=== PATIENT | female | born 1940 | race Caucasian/White ===

== ENCOUNTER 2021-06-29 09:14 | Inpatient (IN) | payer MEDICARE ==
[~2021-06-29] VITALS: Ht 160 cm; Wt 61.3 kg
[2021-06-29 09:23] VITALS: BP 171/90
[2021-06-29 09:52] LABS: BASO # 0.1 10*3/uL (0.0-0.1); BASO % 0.4 % (0.0-1.0); EOS % 0.1 % (1.0-4.0); HEMATOCRIT 47.1 % (37.0-47.0); LYMPH # 1.9 10*3/uL (1.3-4.4); LYMPH % 13.2 % (27.0-41.0); MEAN CELL VOLUME 91.5 fl (81.0-99.0); MEAN CORPUSCULAR HGB 29.9 pg (27.0-31.0); MEAN CORPUSCULAR HGB CONC 32.7 g/dl (33.0-37.0); MEAN PLATELET VOLUME 11.2 fl (9.6-12.3); MONO # 1.5 10*3/uL (0.1-1.0); MONO % 10.3 % (3.0-9.0); NEUT # 10.8 10*3/uL (2.3-7.9); NEUT % 75.5 % (47.0-73.0); PLATELET COUNT AUTOMATED 232 10*3/uL (130-400); RED BLOOD COUNT 5.15 10*6/uL (4.10-5.10); RED CELL DISTRI WIDTH 13.4 % (0-14.5); WHITE BLOOD COUNT 14.3 10*3/uL (4.8-10.8)
[2021-06-29 10:04] LABS: ACT PARTIAL THROMBO TIME 27.8 SECONDS (20.0-32.1)
[2021-06-29 10:12] LABS: ALBUMIN 3.8 gm/dl (3.1-4.5); ALKALINE PHOSPHATASE 88 U/L (45-117); BUN 11 mg/dl (7-24); CHLORIDE 109 mmol/L (98-107); CREATININE 0.87 mg/dL (0.55-1.02); POTASSIUM 3.5 mmol/L (3.5-5.1); SGOT/AST 21 IU/L (3-35); SGPT/ALT 31 U/L (12-78); SODIUM 141 mmol/L (136-145); TOTAL PROTEIN 7.4 gm/dL (6.4-8.2)
[2021-06-29 10:23] LABS: BILIRUBIN Negative (Negative); BLOOD Negative (Negative); CLARITY Clear (Clear); COLOR Yellow (Yellow); GLUCOSE Negative (Negative); KETONE Negative (Negative); LEUKO ESTERASE Negative (Negative); NITRITE Negative (Negative); PH 6.5 (4.5-8.0); UROBILINOGEN 0.2 E.U./dl (0.0-1.0)
[2021-06-29 10:25] LABS: TROPONIN I 0.397 ng/ml (<0.045)
[2021-06-29 10:33] LABS: BACTERIA TRACE; EPITHELIAL CELLS 0-2
[2021-06-29 11:48] LABS: LDH 186 U/L (84-246)
[2021-06-29 13:11] VITALS: BP 169/77
[2021-06-29] MEDS ORDERED: NORVASC10 MG PO (13:52)
[2021-06-29 15:41] VITALS: BP 174/67
[2021-06-29 16:00] VITALS: BP 114/57
[2021-06-29 16:35] VITALS: BP 114/57
[2021-06-29] MEDS ORDERED: PRAVASTATIN SOD10 MG PO (19:27)
[2021-06-29] MEDS ORDERED: ZOLOFT100 MG PO (19:27)
[2021-06-29] MEDS ORDERED: OMEPRAZOLE40 MG PO (19:27)
[2021-06-29] MEDS ORDERED: PREVAGEN PO (19:28)
[2021-06-29] MEDS ORDERED: VITAMIN B COMPLEX PO (19:29)
[2021-06-29] MEDS ORDERED: VITAMIN D325 MCG PO (19:30)
[2021-06-29] MEDS ORDERED: VITAMIN C500 M4 PO (19:31)
[2021-06-29] MEDS ORDERED: ADULTS 50+ MUL1 EACH PO (19:32)
[2021-06-29 20:00] VITALS: BP 153/56
[2021-06-30] VITALS: BP 156/74
[2021-06-30 06:27] LABS: BASO % 0.2 % (0.0-1.0); HEMATOCRIT 40.2 % (37.0-47.0); LYMPH % 35.8 % (27.0-41.0); MEAN CELL VOLUME 91.2 fl (81.0-99.0); MEAN CORPUSCULAR HGB 30.4 pg (27.0-31.0); MEAN CORPUSCULAR HGB CONC 33.3 g/dl (33.0-37.0); MEAN PLATELET VOLUME 11.8 fl (9.6-12.3); MONO % 11.6 % (3.0-9.0); NEUT # 4.4 10*3/uL (2.3-7.9); PLATELET COUNT AUTOMATED 196 10*3/uL (130-400); RED BLOOD COUNT 4.41 10*6/uL (4.10-5.10); RED CELL DISTRI WIDTH 13.5 % (0-14.5); WHITE BLOOD COUNT 8.5 10*3/uL (4.8-10.8)
[2021-06-30 06:47] LABS: ALBUMIN 2.8 gm/dl (3.1-4.5); ALKALINE PHOSPHATASE 65 U/L (45-117); BUN 14 mg/dl (7-24); CHLORIDE 112 mmol/L (98-107); CHOLESTEROL 144 mg/dL (<200); CREATININE 0.61 mg/dL (0.55-1.02); LDL CHOLESTEROL 62 mg/dL (9-159); POTASSIUM 3.8 mmol/L (3.5-5.1); SGOT/AST 19 IU/L (3-35); SGPT/ALT 28 U/L (12-78); SODIUM 145 mmol/L (136-145); TOTAL PROTEIN 5.8 gm/dL (6.4-8.2); TRIGLYCERIDES 111 mg/dl (<150)
[2021-06-30 06:49] LABS: CHOLESTEROL 144 mg/dL (<200); TRIGLYCERIDES 112 mg/dl (<150)
[2021-06-30 06:50] LABS: LDL CHOLESTEROL 60 mg/dL (9-159)
[2021-06-30 06:52] LABS: THYROID STIM HORMONE (HS) 0.131 uIU/ml (0.358-4.75)
[2021-06-30 07:00] LABS: VITAMIN D, 25-HYDROXY 61.9 ng/mL (30-100)
[2021-06-30 08:00] VITALS: BP 170/66
[2021-06-30 12:00] VITALS: BP 159/64
[2021-06-30 15:16] VITALS: BP 153/76
[2021-06-30 20:00] VITALS: BP 158/59
[2021-07-01] VITALS: BP 175/76
[2021-07-01 08:00] VITALS: BP 162/82
[2021-07-01 11:42] VITALS: BP 150/53
[2021-07-01 16:00] VITALS: BP 136/70
[2021-07-01 20:00] VITALS: BP 151/53
[2021-07-02] VITALS: BP 153/77
[2021-07-02 08:00] VITALS: BP 182/59
[2021-07-02 15:07] LABS: MYCOPLASMA PNEUMONIAE IGG 140 U/mL (0-99); MYCOPLASMA PNEUMONIAE IGM <770 U/mL (0-769)
[2021-07-02 16:00] VITALS: BP 133/54
[2021-07-02 20:00] VITALS: BP 157/58
[2021-07-03] VITALS: BP 147/57
[2021-07-03 08:00] VITALS: BP 134/52
[2021-07-03] MEDS ORDERED: MUCUS RELIEF600 MG PO (11:16)
[2021-07-03] MEDS ORDERED: AMLODIPINE BESYL5 MG PO (11:16)
[2021-07-03] MEDS ORDERED: ASPIRIN CHILDRE81 MG PO (11:16)
[2021-07-03] MEDS ORDERED: ZITHROMAX250 MG PO (11:17)
[2021-07-03] MEDS ORDERED: PREDNISONE10 MG PO (11:17)
[2021-07-03 22:06] LABS: PARAINFLUENZA 1 CF Negative (Neg:<1:8); PARAINFLUENZA 2 CF Negative (Neg:<1:8); PARAINFLUENZA 3 CF Negative (Neg:<1:8)
== END 2021-07-03 14:25 | disposition home or self-care (01) | DRG 871 ==
LOC: ED 09:14 → 4E 10:56 → EDHOLD 10:56 → 4E 14:12
PROVIDERS: Emergency Medicine; Hospitalist; Internal Medicine Cardiovascular Disease; Registered Nurse; ADMIT Emergency Medicine; ATTEND Emergency Medicine
DX: A41.9 Sepsis, unspecified organism (principal); E43 Unspecified severe protein-calorie malnutrition; J18.9 Pneumonia, unspecified organism; I21.A1 Myocardial infarction type 2; J44.0 Chronic obstructive pulmonary disease with (acute) lower respiratory infection; J44.1 Chronic obstructive pulmonary disease with (acute) exacerbation; J20.9 Acute bronchitis, unspecified; Z20.822 Contact with and (suspected) exposure to COVID-19; R65.20 Severe sepsis without septic shock; E88.09 Other disorders of plasma-protein metabolism, not elsewhere classified; E83.41 Hypermagnesemia; E87.8 Other disorders of electrolyte and fluid balance, not elsewhere classified; R00.1 Bradycardia, unspecified; Z88.2 Allergy status to sulfonamides; Z79.899 Other long term (current) drug therapy; Z68.23 Body mass index [BMI] 23.0-23.9, adult